=== PATIENT | female | born 1940 | race Caucasian/White ===

== ENCOUNTER 2018-04-09 14:47 | Outpatient (RCR) | payer MEDICARE | END 2018-04-22 | disposition home or self-care (01) | LOC: WCC 14:47 | DX: L97.512 Non-pressure chronic ulcer of other part of right foot with fat layer exposed (principal); E11.21 Type 2 diabetes mellitus with diabetic nephropathy; I73.9 Peripheral vascular disease, unspecified; Z88.0 Allergy status to penicillin; Z88.6 Allergy status to analgesic agent; I13.10 Hypertensive heart and chronic kidney disease without heart failure, with stage 1 through stage 4 chronic kidney disease, or unspecified chronic kidney disease; E11.22 Type 2 diabetes mellitus with diabetic chronic kidney disease; N18.9 Chronic kidney disease, unspecified; I25.2 Old myocardial infarction; E03.9 Hypothyroidism, unspecified; F41.9 Anxiety disorder, unspecified; Z96.651 Presence of right artificial knee joint; Z89.421 Acquired absence of other right toe(s) | CPT/HCPCS: G0463 ==